=== PATIENT | male | born 1955 | race African-American/Black ===

== ENCOUNTER → 2019-06-24 | Day surgery (SDC) | payer MEDICARE ==
[~2019-06-24] MED LIST: FLU VACC QS2019-20(6MOS UP)/PF 60 MCG/0.5 ML SYRINGE IM ONE; Heparin 1,000 UNITS/ML VIAL ONE
[2019-06-24 12:38] VITALS: BP 143/61; TEMP 97.7
--- NOTE | 2019-06-24 14:22 | SPC ---
EXAM: [facility] [place] [facility]AV S PROVIDED CLINICAL HISTORY: High venous pressures at dialysis. COMPARISON: None TECHNIQUE: After informed consent was obtained, the patient was placed on the angiography table in supine positi on. Limited sonographic evaluation of the left upper extremity arteriovenous dialysis fistula was performed. An area overlying the proximal inflow of the arteriovenous fistula was infiltrated with bu ffered 1% lidocaine for local anesthesia. The fistula was accessed directed in the venous direction utilizing micropuncture technique, and a 4 Namibian introducer sheath was placed. A fistulogram and kiran ogram to the SVC were performed. Manual compression was applied to the venous outflow to reflux the arteriovenous anastomosis. The sheath was removed, hemostasis was achieved with direct pressure. Dry sterile dressing was placed at puncture site. The patient tolerated the procedure well and without immediate complication. FINDINGS: Left upper extremity arteriovenous dialysis fistula with generalized narrowing of the proximal inflow is slightly greater degree of narrowing near the level of the arteriovenous anastomosis. However, brisk flow is seen throughout the arteriovenous dialysis fistula. There is limited opacification the SVC due to influx of unopacified blood from the contralateral right innominate vein limiting evaluation of the SVC. Otherwise, no focal stenosis seen throughout the remainder of the venous outfl ow. 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 Dense vascular calcifications are seen in the arterial vessels. Fluoroscopy: Time-2 minutes Dose-38,677 mGy centimeter squared IMPRESSION: 1. Generalized narrowing of the proximal venous inflow with slightly greater degree of narrowing at t he level of the arteriovenous anastomosis. However, this does not appear to represent a flow limiting stenosis as there was difficulty in refluxing the arterial venous anastomosis, and there is brisk flow and washout of the arteriovenous fistula. 2. Limited opacification of the SVC and distal left innominate vein which was thought during real-christa e imaging that this represented influx of unopacified blood from the contralateral right innominate vein. However, there are no collateral vessels seen to suggest significant stenosis and contrast is s een in the pulmonary arteries. If patient's pressures remain elevated during dialysis, a repeat fistulogram with better interrogation of the SVC can be performed.
== END ==
LOC: SPEC 11:36
PROVIDERS: ATTEND Internal Medicine
PROC: B50WYZZ Plain Radiography of Dialysis Shunt/Fistula using Other Contrast (ICD-10-PCS; principal; 2019-06-24)
DX: T82.898A Other specified complication of vascular prosthetic devices, implants and grafts, initial encounter (principal); E11.22 Type 2 diabetes mellitus with diabetic chronic kidney disease; N18.6 End stage renal disease; I25.10 Atherosclerotic heart disease of native coronary artery without angina pectoris; K21.9 Gastro-esophageal reflux disease without esophagitis; Z99.2 Dependence on renal dialysis; Z87.891 Personal history of nicotine dependence; Z79.4 Long term (current) use of insulin; Z79.82 Long term (current) use of aspirin; Z79.899 Other long term (current) drug therapy
CPT/HCPCS: 36901; J1644

== ENCOUNTER 2020-07-19 06:38 | Day surgery (SDC) | payer MEDICARE ==
[2020-07-18 12:38] VITALS: BMI 37.0
[~2020-07-19 06:38] MED LIST changes: -FLU VACC QS2019-20(6MOS UP)/PF 60 MCG/0.5 ML SYRINGE IM ONE; +FLU VACC QS2020-21(6MOS UP)/PF 60 MCG/0.5 ML SYRINGE IM ONE; -Heparin 1,000 UNITS/ML VIAL ONE
--- NOTE | 2020-07-19 10:03 | SPC ---
Dialysis fistulogram left upper extremity Sonographic guided vascular access HISTORY: Renal failure. Prolonged bleeding after dialysis. Evaluate for elevated venous pressures. FINDINGS: After explaining the procedure and answering all questions, sonographic survey of the left upper arm dialysis fistula was performed. Multiple areas of aneurysmal dilatation. Arteriovenous anastomosis is widely patent. Sterile technique, buffered local anesthesia, sonographic guidance, and a 22-gauge needle were used t o carefully access the distal portion of the basilic vein fistula at the level of the distal aneurysmal dilatation. A 4 Nigerian dilator/sheath was carefully placed for imaging. Basilic fistula venous outflow is widely patent into the superior vena cava. No obstruction. Small co llateral projecting superiorly from the basilic vein at the level of the mid humeral shaft. 3 focal areas of aneurysmal dilatation are present just above the level of the antecubital fossa. No internal clot. Multiple attempts to reflux the arterial anastomosis were unsuccessful due to the patulous aneurysmal dilatation and prominent, pulsatile arterial inflow. The anastomosis was shown to be patent on sonography, and, with such good inflow, no flow-limiting stenosis could be present. The sheath was removed and hemostasis obtained using direct pressure. Patient tolerated the procedure well and was dismissed in good condition. Fluoroscopy time 1.1 minutes. IMPRESSION : Left upper arm basilic dialysis fistula is widely patent with 3 dominant areas of aneurysmal dilatati on. No evidence of venous outflow obstruction.
[2020-07-19] MEDS ORDERED: Heparin 1,000 UNITS/ML VIAL ONE (14:03)
--- NOTE | 2020-07-20 12:29 | SPC ---
Dialysis fistulogram left upper extremity Sonographic guided vascular access HISTORY: Renal failure. Prolonged bleeding after dialysis. Evaluate for elevated venous pressures. FINDINGS: After explaining the procedure and answering all questions, sonographic survey of the left upper arm dialysis fistula was performed. Multiple areas of aneurysmal dilatation. Arteriovenous anastomosis is widely patent. Sterile technique, buffered local anesthesia, sonographic guidance, and a 22-gauge needle were used t o carefully access the distal portion of the basilic vein fistula at the level of the distal aneurysmal dilatation. A 4 Armenian dilator/sheath was carefully placed for imaging. Basilic fistula venous outflow is widely patent into the superior vena cava. No obstruction. Small co llateral projecting superiorly from the basilic vein at the level of the mid humeral shaft. 3 focal areas of aneurysmal dilatation are present just above the level of the antecubital fossa. No internal clot. Multiple attempts to reflux the arterial anastomosis were unsuccessful due to the patulous aneurysmal dilatation and prominent, pulsatile arterial inflow. The anastomosis was shown to be patent on sonography, and, with such good inflow, no flow-limiting stenosis could be present. The sheath was removed and hemostasis obtained using direct pressure. Patient tolerated the procedure well and was dismissed in good condition. Fluoroscopy time 1.1 minutes. IMPRESSION : Left upper arm basilic dialysis fistula is widely patent with 3 dominant areas of aneurysmal dilatati on. No evidence of venous outflow obstruction. Transcribed Date/Time: 07/20/2020 12:29 PM
== END 2020-07-19 09:20 | disposition home or self-care (01) ==
LOC: SPEC 06:38
PROVIDERS: ATTEND Internal Medicine
PROC: B50N1ZZ Plain Radiography of Left Upper Extremity Veins using Low Osmolar Contrast (ICD-10-PCS; principal; 2020-07-19)
DX: T82.838A Hemorrhage due to vascular prosthetic devices, implants and grafts, initial encounter (principal); I12.0 Hypertensive chronic kidney disease with stage 5 chronic kidney disease or end stage renal disease; E11.22 Type 2 diabetes mellitus with diabetic chronic kidney disease; N18.6 End stage renal disease; D63.1 Anemia in chronic kidney disease; F17.200 Nicotine dependence, unspecified, uncomplicated; E78.00 Pure hypercholesterolemia, unspecified; J44.9 Chronic obstructive pulmonary disease, unspecified; K21.9 Gastro-esophageal reflux disease without esophagitis; Z86.73 Personal history of transient ischemic attack (TIA), and cerebral infarction without residual deficits; Z99.2 Dependence on renal dialysis
CPT/HCPCS: 36901; 76937; J1644